=== PATIENT | female | born 1960 | race Caucasian/White ===

== ENCOUNTER → 2020-06-22 | Outpatient (CLI) | payer OTHER ==
--- NOTE | 2020-06-22 15:15 | CT ---
EXAMINATION TYPE: CT abdomen pelvis w con DATE OF EXAM: 06/22/2020 COMPARISON: NONE HISTORY: 60 year-old female with left lower quadrant abdominal pain and nausea. TECHNIQUE: Contiguous axial scanning of the abdomen and pelvis following administration of 100 ml Iso mariusz 300 IV contrast. Delayed images through the kidneys and coronal/sagittal reconstructions perform ed. CT DLP: 1282 mGycm Automated exposure control for dose reduction was used. FINDINGS: Heart borderline enlarged without pericardial effusion. Dependent atelectasis in the lower lungs. Mil d emphysematous change. Small hiatal hernia. Liver borderline in size at 17.5 cm. No focal lesion. Portal venous system is patent. No biliary duct al dilatation. Gallbladder, adrenal glands, spleen, and pancreas appear within normal limits. Diverticulum at the junction of the second and third portions of the duodenum projecting inferiorly m easuring 3.4 cm. Couple right renal cysts measured 2.2 cm and 7 mm. A number of small cortical hypodensities in the left kidney measuring up to 1.0 cm, likely small betsy ical cysts. No dilated small bowel, free fluid, or free air. No mesenteric or retroperitoneal lymphadenopathy. Moderate stool in the right side of the colon. There is lower descending and sigmoid diverticulosis. Wall thickening and mild pericolic inflammation involving the mid sigmoid colon. Bladder partially distended. Uterus shows a heterogeneously hypoenhancing 8.9 x 6.9 cm mass along the posterior fundus/body. This appears to have mass effect on to the uterine parenchyma. Small bilateral ovaries. No abnormal fluid collection in the pelvis or pelvic lymphadenopathy. Bones: Mild degenerative change of the hips. Facet arthropathy lower lumbar spine. IMPRESSION: 1. LEFT-SIDED COLONIC DIVERTICULOSIS, GREATEST IN THE SIGMOID COLON. THERE IS WALL THICKENING AND MIL D INFLAMMATION ALONG THE MID SIGMOID. FINDINGS SUGGEST MILD ACUTE DIVERTICULITIS. NO ABSCESS OR FREE AIR. DIRECT VISUALIZATION AFTER TREATMENT TO EXCLUDE UNDERLYING NEOPLASM. 2. LARGE, 8.9 CM HETEROGENEOUSLY HYPOENHANCING MASS WITHIN THE POSTERIOR UTERINE FUNDUS/BODY HAS MASS EFFECT ON THE REMAINING UTERINE PARENCHYMA. CONSIDER AN INFARCTING/DEGENERATING LARGE FIBROID. OUTPA TIENT FOLLOW-UP WITH DATABASE PROGRAMMER ANALYST RECOMMENDED.
== END | disposition home or self-care (01) ==
LOC: RADCTMAIN 13:23
PROVIDERS: ATTEND Family Medicine
DX: K57.30 Diverticulosis of large intestine without perforation or abscess without bleeding (principal); K52.9 Noninfective gastroenteritis and colitis, unspecified; K63.89 Other specified diseases of intestine; N85.8 Other specified noninflammatory disorders of uterus
CPT/HCPCS: 74177; Q9967

== ENCOUNTER → 2021-02-05 | Outpatient (CLI) | payer OTHER ==
--- NOTE | 2021-02-09 11:26 | MM ---
Reason for exam: screening (asymptomatic). Last mammogram was performed 15 years and 3 months ago. History: Patient is postmenopausal. Family history of breast cancer in sister at age 30. Took hormonal contraceptives for 5 years. Physical Findings: A clinical breast exam by your physician is recommended on an annual basis and results should be correlated with mammographic findings. MG Screening Mammo w CAD Bilateral CC and MLO view(s) were taken. Prior study comparison: May 26, 2019, mammogram. March 23, 2018, mammogram. There are scattered fibroglandular densities. Bilateral asymmetries. No change. ASSESSMENT: Benign, BI-RAD 2 RECOMMENDATION: Routine screening mammogram of both breasts in 1 year.
== END | disposition home or self-care (01) ==
LOC: RADMAMWWP 06:57
PROVIDERS: ATTEND Family Medicine
DX: Z12.31 Encounter for screening mammogram for malignant neoplasm of breast (principal); Z78.0 Asymptomatic menopausal state; Z80.3 Family history of malignant neoplasm of breast
CPT/HCPCS: 77067

== ENCOUNTER → 2021-04-18 | Outpatient (CLI) | payer OTHER ==
[2021-04-18 13:15] LABS: HCT 44.7 % (34.0-46.0); HGB 14.8 gm/dL (11.4-16.0); MCH 31.2 pg (25.0-35.0); MCV 94.5 fL (80.0-100.0); Mean Platelet Volume 8.4; Platelet Count 229 k/uL (150-450); RBC 4.73 m/uL (3.80-5.40); RDW 13.3 % (11.5-15.5)
[2021-04-18 13:29] LABS: Potassium 4.5 mmol/L (3.5-5.1)
== END | disposition home or self-care (01) ==
LOC: LABPAT 12:28
PROVIDERS: ATTEND Internal Medicine Clinical Cardiac Electrophysiology
DX: Z01.812 Encounter for preprocedural laboratory examination (principal); I47.1 Supraventricular tachycardia
CPT/HCPCS: 36415; 80051; 82565; 84520; 85027

== ENCOUNTER 2021-05-01 08:52 | Day surgery (SDC) | payer OTHER ==
[2021-04-25 09:32] VITALS: BMI 33.3
[2021-05-01] MEDS: SODIUM CHLORIDE 0.9% 1,000 ML IV SCH (09:10)
[2021-05-01] MEDS ORDERED: MIDAZOLAM 2 MG/2 ML VIAL IVP ONE (09:37)
[2021-05-01] MEDS ORDERED: MIDAZOLAM 2 MG/2 ML VIAL ONE (10:20)
[2021-05-01] MEDS ORDERED: diphenhydrAMINE 50 MG/ML 1 ML VIAL ONE (10:20)
[2021-05-01] MEDS ORDERED: ONDANSETRON 4 MG/2 ML VIAL ONE (10:20)
[2021-05-01] MEDS ORDERED: fentaNYL (PF) 50 MCG/ML 2 ML AMP ONE (10:20)
[2021-05-01] MEDS ORDERED: KETAMINE 10 MG/ML 20 ML VIAL ONE (10:20)
[2021-05-01] MEDS ORDERED: DEXAMETHASONE SOD PHOSPHATE 10 MG/ML 1 ML VIAL ONE (10:20)
[2021-05-01] MEDS ORDERED: LIDOCAINE 1% INJ 10MG/ML (20 ML MDV) ONE (10:22)
--- NOTE | 2021-05-01 10:46 | P.HPCAR ---
History of Present Illness This is Dr. Banks dictating an H/P on this patient The patient was interviewed and examined IMPRESSION / ASSESSMENT: Recurrent SVT number symptomatic Refractory to nadolol 20 mg by mouth daily Hypertension with mild LVH 2+ tricuspid regurgitation Elevated RVSP on 2-D echo PLAN: Diagnostic EP study and radiofrequency ablation as clinically indicated Evaluation of RVSP of 54 mmHg, right heart cath HPI Patient continues to complain of recurrent palpitations despite being on beta blockers. She has breakthrough episodes and nadolol 20 mg daily We have documented narrow complex SVT on event monitoring on nadolol 20 mg by mouth daily No loss of consciousness no chest discomfort ROS: No fever chills or rigors, no cough, phlegm or expectoration, no nausea, vomiting or diarrhea, no hematuria, dysuria, no musculoskeletal complaints, no strokes or seizures, no skin lesions. EXAMINATION: Temperature 97.1, pulse rate 79 Blood pressure 144/95 mmHg pulse ox 96% Breath sounds are clear no rhonchi no crackles Heart sounds S1 and S2 are normal no murmurs or gallop or rub Extremities warm no edema REVIEW OF LABS, ECG & MEDICAL DATA 2-D echo in July 2020 showed preserved LV systolic function 2+ tricuspid regurgitation mild left ventricular hypertrophy and a right ventricular systolic pressure of 54 mmHg Stress test did not show any evidence for ischemia. She exercised on a Arturo protocol for 6-1/2 minutes in July 2020 Physical Exam Vitals: Vital Signs Temp Pulse Resp BP Pulse Ox 05/01/21 09:20 97.1 F L 79 16 144/95 96 Intake and Output 04/30/21 05/01/21 05/01/21 22:59 06:59 14:59 Intake Total 50 Balance 50 Intake: IV 50 Other: Weight 88.6 kg Past Medical History Past Medical History: Atrial Fibrillation History of Any Multi-Drug Resistant Organisms: None Reported Past Surgical History: Orthopedic Surgery Additional Past Surgical History / Comment(s): ankle pins plate Past Anesthesia/Blood Transfusion Reactions: Postoperative Nausea & Vomiting (PONV) Additional Past Anesthesia/Blood Transfusion Reaction / Comment(s): dt anxiety Smoking Status: Current every day smoker - Past Family History Mother Family Medical History: No Reported History Physical Examination Vital Signs Temp Pulse Resp BP Pulse Ox 05/01/21 09:20 97.1 F L 79 16 144/95 96 Intake and Output 04/30/21 05/01/21 05/01/21 22:59 06:59 14:59 Intake Total 50 Balance 50 Intake: IV 50 Other: Weight 88.6 kg Results Current Medications Generic Name Dose Route Start Last Admin Trade Name Loco PRN Reason Stop Dose Admin Lactated Ringer's 1,000 mls @ 20 mls/hr 05/01/21 06:10 Lactated Ringers IV 05/31/21 06:11 .Q24H JESSICA Sodium Chloride 1,000 mls @ 20 mls/hr 05/01/21 06:10 05/01/21 09:10 Saline 0.9% IV 05/31/21 06:11 50 mls .Q24H JESSICA Administration Intake and Output 04/30/21 05/01/21 05/01/21 22:59 06:59 14:59 Intake Total 50 Balance 50 Intake: IV 50 Other: Weight 88.6 kg Patient Weight 05/02/21 06:59 Weight 88.6 kg
[2021-05-01] MEDS ORDERED: LIDOCAINE 1% INJ 10MG/ML (20 ML MDV) SQ ONE (11:10)
[2021-05-01] MEDS ORDERED: HEPARIN SODIUM (1,000 UNIT/ML) 1,000 UNIT in SODIUM CHLORIDE 0.9% 1,000 ML IRRIGATION ONE (12:32)
[2021-05-01] MEDS ORDERED: ACETAMINOPHEN TAB 325 MG TAB PO PRN (13:26)
[2021-05-01] MEDS ORDERED: ACETAMINOPHEN IV (For NPO) 1,000 MG in EMPTY BAG 1 BAG IVPB ONE (13:30)
--- NOTE | 2021-05-01 13:30 | P.PRLE ---
RE: Rody Puri Dear Marcy Woodeen underwent a diagnostic EP study which revealed typical AV node reentrant tachycardia She underwent successful slow pathway modification AV mendez reentry was rendered noninducible However she will continue with propranolol since she has migraines Thank you for entrusting me with the care of the patient Warm regards Sincerely Rc Banks
--- NOTE | 2021-05-01 15:13 | CE ---
CARDIAC ELECTROPHYSIOLOGY REPORT This is a 61-year-old female with recurrent palpitations despite beta alicia. She was brought in for a diagnostic EP study and possible radiofrequency ablation. Patient was brought to the EP lab in a fasting state. Written informed consent was obtained prior to the procedure. Venous sheaths were placed in the right groin, and via these catheters were placed in the high right atrium, His bundle area, RV and coronary sinus. Baseline measurements were as follows: Sinus cycle length 1019 milliseconds, OH interval 125 milliseconds, QRS 101 milliseconds, and QT 463 milliseconds. AH interval 75 milliseconds, HV interval 35 milliseconds. Sinus node recovery times at 600, 500 and 400 milliseconds were 1366, 1528 and 1411 milliseconds. Corresponding corrected sinus node recovery times were within normal limits. No delta waves with atrial pacing. No slow pathway evident with straight pacing from the coronary sinus. AV node Wenckebach block 330 milliseconds. VA Wenckebach block 330 milliseconds. Ventricular extrastimulation was performed. Ventricular conduction was midline and decremental. Para Hisian pacing was performed and a mendez response was noted. Ventricular ERP was 600/290 milliseconds. Thereafter, Isuprel was started at high dose and then down to 2 mcg. Ventricular ERP 400/210 milliseconds. With atrial extrastimulation, 400/200 milliseconds. SVT was induced. This was a narrow complex SVT with a short septal time. Tachycardia cycle length 273 milliseconds. With RV pacing, the tachycardia was entrained. Post-pacing interval was long, consistent with AV mendez reentry. Isuprel was stopped. A long sheath was placed and 3D electroanatomic mapping was performed. The His bundle was mapped. The coronary sinus was mapped. The tricuspid anulus and the septum were mapped. Slow pathway was mapped. RF ablation was applied just outside the coronary sinus and just anterior to it. Junctional rhythm was obtained. Good power of 30 herndon was used with an irrigated-tip catheter. Junctional rhythm was noted followed by resumption of sinus rhythm. Thereafter, a full EP study was performed again on and off Isuprel. High-dose Isuprel was used. Atrial extrastimulation from the high right atrium, from the coronary sinus was performed up to triple extrastimuli. No SVT was induced and there was no evidence of slow pathway conduction with atrial extrastimulation. Ventricular extrastimulation was performed. No SVT was induced. Isuprel was stopped. No further SVT was induced. All catheters were then removed. Vascade MVP was used to seal the venous punctures. The patient was transferred back to telemetry. RESULT: Diagnostic EP study revealing AV mendez re-entry as a mechanism of tachycardia and successful mapping and ablation of the slow pathway. PROCEDURE: Prior to starting the diagnostic EP study, right heart catheterization was performed. The 2D echo suggested RVSP of about 55 mmHg. A Mobile-Enriqueta catheter was placed from the venous sheath into the pulmonary artery. The PA pressures were 37/17/25 mmHg. Pulmonary capillary wedge pressure was 18/11/15 mmHg. RV pressures were 40/7/19 mmHg. RA pressures of 15/6/11 mmHg. IMPRESSION: 1. Mild pulmonary hypertension. 2. Mildly increased pulmonary capillary wedge pressure. MMODL / IJN: [id number] /
[2021-05-01] MEDS: LACTATED RINGERS 1,000 ML IV SCH (16:26)
[2021-05-01] MEDS: PROPRANOLOL 10 MG TAB PO SCH (21:58)
[2021-05-02] MEDS ORDERED: METOCLOPRAMIDE 5 MG TAB PO STA (08:10)
[2021-05-02] MEDS: PROPRANOLOL 10 MG TAB PO SCH (08:54)
[2021-05-02] MEDS: LACTATED RINGERS 1,000 ML IV SCH (08:55)
[2021-05-02] MEDS: SODIUM CHLORIDE 0.9% 1,000 ML IV SCH (08:56)
[2021-05-02] MEDS ORDERED: ASPIRIN 81 MG PO SCH (09:00)
[2021-05-02 15:54] VITALS: BP 117/77; PULSE 61; RESP 14; TEMP 98
[2021-05-02 15:56] LABS: Chol/HDL Ratio 4.55; LDL Cholesterol,Calculated 108.8 mg/dL (0.0-131.0); VLDL Calculation 26.2 mg/dL (5.00-40.00)
--- NOTE | 2021-05-02 16:57 | DS ---
DISCHARGE SUMMARY Rody Puri is a 61-year-old female with recurrent palpitations despite beta blockers and she underwent a diagnostic EP study yesterday, AV mendez reentry was found and she underwent successful in slow pathway ablation. Overnight, her main issue has been nausea secondary to conscious sedation medications. She was nauseous after she received her medications. We reversed fentanyl. She received ketamine during conscious sedation too. Overnight she has been nauseous, but her groins have healed up very well. There is minimal bruising in the right groin. No hematoma. Blood pressure is 104 mmHg systolic. Heart sounds are normal. No rub. Lungs are clear. Breath sounds are clear. No edema. Abdomen is soft. IMPRESSION: 1. AV mendez reentry, status post successful slow pathway ablation. 2. History of migraines, on Inderal. IV fluids. PLAN: Increase oral intake of fluids, ambulate in the hallways and discharged home by 5 o'clock if she stable. We will see her in the office in a week's time. MMODL / IJN: [id number] /
== END 2021-05-02 16:25 | disposition home or self-care (01) ==
LOC: CATHEP 08:52 → 6NMEDSUR 13:55 → CATHEP 05-02 16:25
PROVIDERS: ATTEND Internal Medicine Clinical Cardiac Electrophysiology
DX: I47.1 Supraventricular tachycardia (principal); I27.20 Pulmonary hypertension, unspecified; Z79.899 Other long term (current) drug therapy; I10 Essential (primary) hypertension; F17.210 Nicotine dependence, cigarettes, uncomplicated; Z88.6 Allergy status to analgesic agent; Z88.5 Allergy status to narcotic agent; K21.9 Gastro-esophageal reflux disease without esophagitis; F41.9 Anxiety disorder, unspecified
CPT/HCPCS: 93451; 93623; 93613; 93653; 80061 ×2; 84443 ×2; C1894 ×2; C1769 ×2; C1760; C1893; C1732; C1730; J2250; J2001; J1644

== ENCOUNTER → 2023-05-06 | Outpatient (CLI) | payer OTHER ==
--- NOTE | 2023-05-07 08:03 | US ---
EXAMINATION TYPE: US thyroid st tissue head/neck DATE OF EXAM: 05/06/2023 COMPARISON: NONE CLINICAL INDICATION: Female, 63 years old with history of E04.1 THYROID NODULE; Pt states she had an US done 1 year ago and there was a nodule GLAND SIZE: Right Lobe: 4.9 x 1.4 x 1.8 cm Overall Parenchyma: heterogenous Left Lobe: 5.3 x 2.4 x 2.1 cm Overall Parenchyma: heterogenous Isthmus Thickness: 0.3 cm NODULES RIGHT: # of nodules measured on right: 1 1. 0.7 X 0.6 x 0.5 cm, mid mid, solid or almost completely solid, isoechoic nodule, which is wider than tall, with ill-defined margins, without echogenic foci. LEFT: # of nodules measured on left: 1 1. 1.9 X 2.0 x 1.2 cm, lower mid, solid or almost completely solid, isoechoic nodule, which is wide r than tall, with ill-defined margins, without echogenic foci. TR 4 ISTHMUS: # of nodules measured in the isthmus: 0 Bilateral neck scanned, no evidence of lymphadenopathy. IMPRESSION: Moderately suspicious nodule posterior inferior left lobe thyroid. Fine-needle aspiration can be perf ormed. 2017 ACR TI-RADS LEVEL: TR-RADS 4 - Moderately Suspicious: Follow if > 1 cm, FNA if > 1.5 cm *Highest TI-RADS level nodule reported
== END | disposition home or self-care (01) ==
LOC: RADUSWWP 16:43
PROVIDERS: ATTEND Family Medicine
DX: E04.1 Nontoxic single thyroid nodule (principal)
CPT/HCPCS: 76536

== ENCOUNTER 2023-06-19 12:51 | Day surgery (SDC) | payer OTHER ==
[~2023-06-19 12:51] MED LIST: ALPRAZolam 0.5 MG TAB PO PRN
[2023-06-19 14:00] VITALS: RESP 16
--- NOTE | 2023-06-19 15:06 | US ---
EXAMINATION TYPE: US FNA first lesion DATE OF EXAM: 06/19/2023 3:01 PM CLINICAL INDICATION:Female, 63 years old with history of E04.1 NONTOXIC SINGLE THYROID NODULE; , thyr oid nodule. COMPARISON: 05/06/2023 ATTENDING: Dr. Rubio Magaña PROCEDURE: Informed consent was obtained. The risks and benefits of the procedure were discussed with the patien t. The site was marked. Timeout procedure was performed Ultrasound imaging of the thyroid demonstrates left posterior thyroid nodule The patient was prepped, draped in the usual sterile fashion, and locally anesthetized with 1% lidoca ine. Five fine needle aspiration were then performed with a 25 gauge needle. Samples were sent to [facility] pathology department for further analysis. Patient tolerated the procedure without incident and wa s sent home in stable condition. IMPRESSION: Successful ultrasound guided fine needle aspiration.
[2023-06-19 15:25] VITALS: BP 128/79; PULSE 78; TEMP 98
== END 2023-06-19 15:19 | disposition home or self-care (01) ==
LOC: RADPROMAIN 12:51
PROVIDERS: ATTEND Family Medicine
DX: E04.1 Nontoxic single thyroid nodule (principal)
CPT/HCPCS: 10005; 88173; 88305

== ENCOUNTER → 2023-07-15 | Outpatient (CLI) | payer OTHER ==
--- NOTE | 2023-07-16 15:35 | BD ---
EXAMINATION TYPE: Axial Bone Density DATE OF EXAM: 07/15/2023 CLINICAL HISTORY: 63 years old Female. ICD-10 CODE: M89.9 DISORDER OF BONE Height: 64 Weight: 209.4 FRAX RISK QUESTIONS: Alcohol (3 or more units per day): no Family History (Parent hip fracture): no Glucocorticoids (More than 3mos): no (Ex: prednisone, prednisolone, methylprednisolone, dexamethasone, and hydrocortisone). History of Fracture in Adulthood: yes Secondary Osteoporosis: 1. Type 1 Diabetes: no 2. Hyperthyroidism: no 3. Menopause before 45: no 4. Malnutrition: no 5. Chronic liver disease: no Rheumatoid Arthritis: no Current Tobacco Use: yes RISK FACTORS HISTORY OF: Surgery to Spine/Hip(right/left)/Wrist (right/left): no Additional History: EXAM MEASUREMENTS: Bone mineral densitometry was performed using the Dinnr System. Bone mineral density as measured about the Lumbar spine is: ----- L1-L4(G/cm2): 0.982 T Score Values are as follows: ----- L1: -1.8 ----- L2: -1.9 ----- L3: -1.7 ----- L4: -1.5 ----- L1-L4: -1.7 Z Score Values are as follows: ----- L1: -1.3 ----- L2: -1.4 ----- L3: -1.2 ----- L4: -1.0 ----- L1-L4: -1.2 Bone mineral density : baseline Bone mineral density about the R hip (g/cm2): 0.979 Bone mineral density about the L hip (g/cm2): 0.975 T Score values are as follows: -----R Neck: -1.3 -----L Neck: -1.3 -----R Total: -0.2 -----L Total: -0.3 Z Score values are as follows: -----R Neck: -0.6 -----L Neck: -0.5 -----R Total: 0.2 -----L Total: 0.1 Bone mineral density : baseline FRAX%s: The graph provided illustrates a 12.7% chance for a major osteoporotic fx and a 1.7% chance f or the hips probability for fx in 10 years time. IMPRESSION: Osteopenia (T Score between -2.5 and -1). There is slightly increased risk of fracture and the patient may be considered for treatment. Re-Screen 2-5 years. NOTE: T-SCORE=SD OF THE YOUNG ADULT MEAN.
--- NOTE | 2023-07-16 23:58 | MM ---
Reason for Exam: Screening (asymptomatic). Last mammogram was performed 2 year(s) and 5 month(s) ago. Patient History: Menarche at age 20. First Full-Term at age 24. Postmenopausal. Patient used Hormonal Contraceptives for 5 years. Sister had breast cancer, age 30. Risk Values: Kait 5 year model risk: 2.7%. NCI Lifetime model risk: 11.4%. Prior Study Comparison: 03/23/2018 Screening Mammogram, Unknown. 05/26/2019 Screening Mammogram, Unknown. 02/05/2021 Bilateral Screening Mammogram, [facility]. Tissue Density: There are scattered fibroglandular densities. Findings: Analyzed By CAD. Chronic bilateral nodularity and areas of asymmetric densities in both sites. However, a subareolar focal asymmetry in the left breast has become more defined and further evaluation is recommended. Overall Assessment: Incomplete: need additional imaging evaluation, BI-RAD 0 Management: Special View Mammogram of the left breast. Diagnostic Breast Ultrasound of the left breast. Additional views to include spot 3-D CC, 3-D MLO, and 3-D lateral views. Subsequent targeted left breast ultrasound. [facility] will attempt to contact patient to return for supplemental views and ultrasound if indicated. Electronically signed and approved by: Abiola Angel M.D. Radiologist
== END | disposition home or self-care (01) ==
LOC: RADMAMWWP 14:30
PROVIDERS: ATTEND Family Medicine
DX: Z12.31 Encounter for screening mammogram for malignant neoplasm of breast (principal); M85.89 Other specified disorders of bone density and structure, multiple sites; Z78.0 Asymptomatic menopausal state; Z80.3 Family history of malignant neoplasm of breast
CPT/HCPCS: 77063; 77067; 77080

== ENCOUNTER → 2023-07-25 | Outpatient (CLI) | payer SELFPAY ==
--- NOTE | 2023-07-25 11:09 | MM ---
Reason for Exam: Additional evaluation requested from abnormal screening. Last screening mammogram was performed less than 1 month ago. Patient History: Menarche at age 20. First Full-Term at age 24. Postmenopausal. Patient used Hormonal Contraceptives for 5 years. Sister had breast cancer, age 30. Risk Values: Kait 5 year model risk: 2.7%. NCI Lifetime model risk: 11.4%. Prior Study Comparison: 05/26/2019 Screening Mammogram, Unknown. 02/05/2021 Bilateral Screening Mammogram, [facility]. 07/15/2023 Bilateral MG 3D screening mammo w/cad, [facility]. Tissue Density: Left: There are scattered fibroglandular densities. Findings: Analyzed By CAD. Persistent mass 3.1 cm from nipple measuring 8 mm. Overall Assessment: Incomplete: need additional imaging evaluation, BI-RAD 0 Management: Diagnostic Breast Ultrasound of the left breast. Results were given to the patient verbally at the time of exam. Patient should continue monthly self-breast exams. A clinical breast exam by your physician is recommended on an annual basis. This exam should not preclude additional follow-up of suspicious palpable abnormalities. Note on Kait scores and lifetime risk: 1. A Kait score greater than 3% is considered moderate risk. If this is the case, consider specialist referral to assess eligibility for a risk reducing agent. 2. If overall lifetime risk for the development of breast cancer is 20% or higher, the patient may qualify for future screening with alternating mammogram and breast MRI. Electronically signed and approved by: Rubio Magaña DO
--- NOTE | 2023-07-25 11:11 | USB ---
Reason for Exam: Additional evaluation requested from abnormal screening. Patient History: Menarche at age 20. First Full-Term at age 24. Postmenopausal. Patient used Hormonal Contraceptives for 5 years. Sister had breast cancer, age 30. Risk Values: Kait 5 year model risk: 2.7%. NCI Lifetime model risk: 11.4%. Technique: Method: Targeted. Prior Study Comparison: 11/28/2005 Right Diagnostic Ultrasound, [facility]. 05/26/2019 Screening Mammogram, Unknown. 02/05/2021 Bilateral Screening Mammogram, [facility]. 07/15/2023 Bilateral MG 3D screening mammo w/cad, [facility]. Findings: Technique utilized:US breast workup limited LT Image; Ultrasound imaging of: All 4 quadrants, the retroareolar region and axilla. Heterogenous tissue posterior nipple. More masslike area with shadowing measuring 3 x 5 x a4 mm is present. Overall Assessment: Suspicious, BI-RAD 4 Management: Ultrasound Core Biopsy of the left breast. A clinical breast exam by your physician is recommended on an annual basis and results should be correlated with mammographic findings. This exam should not preclude additional follow-up of suspicious palpable abnormalities. Results were given to the patient verbally at the time of exam. Electronically signed and approved by: Rubio Magaña DO
== END | disposition home or self-care (01) ==
LOC: RADMAMWWP 10:12
PROVIDERS: ATTEND Family Medicine
DX: R92.322 Mammographic fibroglandular density, left breast (principal); Z78.0 Asymptomatic menopausal state; Z80.3 Family history of malignant neoplasm of breast
CPT/HCPCS: 77061; 77065

== ENCOUNTER → 2023-10-17 | Outpatient (CLI) | payer OTHER ==
[2023-10-17 10:28] VITALS: BP 138/87; PULSE 75; RESP 15; TEMP 98.1
--- NOTE | 2023-10-17 10:29 | P.GSHP ---
History of Present Illness H&P Date: 10/17/23 Chief Complaint: left breast nodule Rody is a 63 year old female seen in consultation for DR. Coates regarding a left breat nodule. She had a bilateral mammogram on 07-15-23 which led to a left breast diagnostic mammogram and ultrasound. The mammogram on 07-25-23 showed a persistent mass 8mm in size 3.1 cm from the nipple. The ultrasound on the same date 07-25-23 showed a 3 by 5 by 4 mm area in [place] region fo the abnormality and biopsy recommended. She did not yet have the biopsy done. She is not complaining of any new lumps masses or nodules of concern in either breast. Since she was told she needed an ultrasound-guided core biopsy she has had some discomfort in the lateral aspect of the left breast. She has not had any surgery on her breast. She has not had any recent trauma or infection in the breast. She gets her mammograms yearly. Caffeine: none nicotine: 1 PPD for 50 years chocolate: off it for 5 weeks used to eat daily BCP: used them for 1 year in the remote past hormones: none Kait Risk: 2.7% at 5 years Family History: sister: lymphoma Hormonal History: Menarche: 20 , breast fed: no, age at : 24 menopause: 45 Surgical History: plate in left ankle parathyroid surgery heart ablation Medical History: none atrial fib in the past not since ablation Social History: nicotine: as above alcohol: none drugs: none - Constitutional Constitutional: Denies chills, Denies fever - EENT Eyes: denies blurred vision, denies pain Ears: deny: decreased hearing, tinnitus Ears, nose, mouth and throat: Denies headache, Denies sore throat - Breasts Breasts: bilateral: as per HPI - Cardiovascular Cardiovascular: Denies chest pain, Denies shortness of breath - Respiratory Respiratory: Reports as per HPI - Gastrointestinal Gastrointestinal: Denies abdominal pain, Denies diarrhea, Denies nausea, Denies vomiting - Genitourinary (Female) Genitourinary: Reports as per HPI, Reports kidney stones, Denies dysuria, Denies hematuria - Menstruation Menstruation: Reports postmenopausal - Musculoskeletal Musculoskeletal: Denies myalgias - Integumentary Integumentary: Denies pruritus, Denies rash - Neurological Neurological: Denies numbness, Denies weakness - Psychiatric Psychiatric: Denies anxiety, Denies depression - Endocrine Endocrine: Reports as per HPI - Hematologic/Lymphatic Comment: none - Allergic/Immunologic Allergic/Immunologic: Reports as per HPI Past Medical History Past Medical History: Atrial Fibrillation, Thyroid Disorder History of Any Multi-Drug Resistant Organisms: None Reported Past Surgical History: Orthopedic Surgery Additional Past Surgical History / Comment(s): ankle pins and plate, parathyoidectomy at [facility], ablation for A-fib Past Anesthesia/Blood Transfusion Reactions: Postoperative Nausea & Vomiting (PONV) Additional Past Anesthesia/Blood Transfusion Reaction / Comment(s): dt anxiety Past Psychological History: Anxiety Smoking Status: Current every day smoker Past Alcohol Use History: None Reported Past Drug Use History: None Reported - Past Family History Mother Family Medical History: No Reported History Medications and Allergies Home Medications Medication Instructions Recorded Confirmed Type Vitamin B Complex 1 tab PO DAILY 07/28/23 10/17/23 History Cholecalciferol (Vitamin D3) 50 mcg PO DAILY 10/17/23 10/17/23 History [Vitamin D3 (50 Mcg = 2000 Iu)] Allergies Allergy/AdvReac Type Severity Reaction Status Date / Time hydrocodone [From [place]] AdvReac Nausea & Verified 10/17/23 09:56 Vomiting Surgical - Exam Vital Signs Temp Pulse Resp BP Pulse Ox 98.1 F 75 15 138/87 99 10/17/23 09:58 10/17/23 09:58 10/17/23 09:58 10/17/23 09:58 10/17/23 09:58 - General no distress - Eyes normal ocular movement - Neck trachea midline - Respiratory normal respiratory effort - Cardiovascular Heart Sounds: normal: S1, S2 - Abdomen Abdomen: soft, non tender, no guarding, no rigid, no rebound - Integumentary normal turgor - Neurologic no disoriented, no combative - Psychiatric oriented to time, oriented to person, oriented to place, speech is normal, memory intact Breast Exam: BRA: 38C Inspection: Right breast slightly larger than left breast, bilateral grade 2/3 ptosis Palpation: Right breast Multi positional exam no dominant masses or nodules of concern, fibrocystic changes Right axilla: No adenopathy of concern Left breast: Multi positional exam fibrocystic changes no dominant masses or nodules of concern Left axilla no adenopathy of concern Results Mammogram and ultrasound personally reviewed 4 by 5 mm lesion posterior to nipple areolar complex on the left for which core biopsy is recommended Assessment and Plan Assessment: Impression: Radiographic abnormality left breast Kait risk 2.7% 5-year Prior history of hyperparathyroidism resolved Nicotine dependence Plan: 1. Ultrasound-guided left breast core biopsy 2. Smoking cessation and at this time the patient is going to consider that 3. We have discussed the Kait risk and chemoprophylaxis and at this time she has declined 4. Patient to follow-up after ultrasound-guided core biopsy She is seen with her . He does have questions regarding what the pathology may be if this were a benign lesion, we have answered those questions. Risks of the procedure include but are not limited to bleeding, infection, reaction to the anesthetic. If the lesion cannot be clearly seen it may not be possible to do an ultrasound-guided core biopsy or if the lesion were discordant then further tissue acquisition may be necessary. They understand and wish to proceed. This will be scheduled in the near future. CC: DR. Coates
== END ==
LOC: WWCWWP 09:43
PROVIDERS: ATTEND Surgery
DX: E03.9 Hypothyroidism, unspecified (principal); I48.91 Unspecified atrial fibrillation; N63.20 Unspecified lump in the left breast, unspecified quadrant; F41.9 Anxiety disorder, unspecified; F17.210 Nicotine dependence, cigarettes, uncomplicated; Z98.890 Other specified postprocedural states; Z88.5 Allergy status to narcotic agent

== ENCOUNTER → 2023-10-30 | Day surgery (SDC) | payer OTHER ==
--- NOTE | 2023-11-03 15:18 | MM ---
Reason for Exam: Post Procedure Mammogram. Last screening mammogram was performed 4 month(s) ago. Patient History: Menarche at age 20. First Full-Term at age 24. Postmenopausal. Patient used Hormonal Contraceptives for 5 years. Sister had breast cancer, age 30. Risk Values: Kait 5 year model risk: 2.7%. NCI Lifetime model risk: 11.4%. Prior Study Comparison: 02/05/2021 Bilateral Screening Mammogram, [facility]. 07/15/2023 Bilateral MG 3D screening mammo w/cad, [facility]. 07/25/2023 Left MG 3D work up w/cad LT, [facility]. Tissue Density: Left: There are scattered areas of fibroglandular density. Pathology Description: Marker Left Behind. Needle Type: Celero Cores: 3 The procedure of ultrasound guided core biopsy was explained to the patient. Benefits, alternatives, and risks were discussed. An informed consent was then obtained. The patient was placed in supine positioning for imaging and for the procedure. The overlying skin was prepped and draped in usual sterile fashion. Lidocaine buffered with bicarbonate was used as anesthetic into the skin and subcutaneous tissue up to area of concern in the left retroareolar breast. Under ultrasound guidance, a 12-gauge vacuum assisted biopsy gun device was used to obtain 3 core samples. Following this, a biopsy clip was left in lesion. The patient tolerated the procedure well without any immediate complication. The patient was kept in the radiology department for short stay after the procedure and then discharged home in stable condition. Postprocedure mammogram: The patient was transferred to mammography for physician ordered post procedure mammogram for clip placement verification. Impression: Successful, uncomplicated ultrasound guided core biopsy of area of concern in the left retroareolar breast, full pathology results to follow. Pathology Results: Result: Benign, Fibrocystic change. LEFT BREAST NIPPLE, NEEDLE CORE BIOPSY: Benign breast with fibrocystic changes including fibrotic cyst wall with chronic inflammation. Overall Assessment: Benign Assessment: MG diagnostic mammo LT wo CAD. - Left: Probably benign, BI-RAD 3. Management: Diagnostic Mammogram of the left breast in 6 months. Diagnostic Breast Ultrasound of the left breast in 6 months. Benign results may be concordant as the area appears to have been adequately sampled. Given imaging features, short interval follow up recommended. Electronically signed and approved by: David Bajwa M.D. Radiologis
== END ==
LOC: RADUSWWP 12:35
PROVIDERS: ATTEND Surgery
DX: N60.12 Diffuse cystic mastopathy of left breast (principal)
CPT/HCPCS: 88305; 77065; 19083; A4648

== ENCOUNTER → 2023-11-07 | Outpatient (CLI) | payer OTHER ==
--- NOTE | 2023-11-07 11:36 | P.PN ---
Subjective Progress Note Date: 11/07/23 Principal diagnosis: fibrocystic breast changes left breast nodule Rody is a 63 year old female seen in consultation for DR. Coates regarding a left breast nodule. She had a bilateral mammogram on 07-15-23 which led to a left breast diagnostic mammogram and ultrasound. The mammogram on 07-25-23 showed a persistent mass 8mm in size 3.1 cm from the nipple. The ultrasound on the same date 07-25-23 showed a 3 by 5 by 4 mm area in the region of the abnormality and biopsy was recommended. She was not complaining of any new lumps masses or nodules of concern in either breast. Since she was told she needed an ultrasound-guided core biopsy she has had some discomfort in the lateral aspect of the left breast. She had not had any surgery on her breast. She had not had any recent trauma or infection in the breast. She gets her mammograms yearly. ultrasound core biopys of the left bresat on 10-30-23 benign breast tissue/concordant repeat left breast mammogram and ultrasound in 6 months Biopsy without difficulty Caffeine: none nicotine: 1 PPD for 50 years chocolate: off it for 5 weeks used to eat daily BCP: used them for 1 year in the remote past hormones: none Kait Risk: 2.7% at 5 years Family History: sister: lymphoma Hormonal History: Menarche: 20 , breast fed: no, age at : 24 menopause: 45 Surgical History: plate in left ankle parathyroid surgery heart ablation Medical History: none atrial fib in the past not since ablation Social History: nicotine: as above alcohol: none drugs: none - Constitutional Constitutional: Denies chills, Denies fever - EENT Eyes: denies blurred vision, denies pain Ears: deny: decreased hearing, tinnitus Ears, nose, mouth and throat: Denies headache, Denies sore throat - Breasts Breasts: bilateral: as per HPI - Cardiovascular Cardiovascular: Denies chest pain, Denies shortness of breath - Respiratory Respiratory: Reports as per HPI - Gastrointestinal Gastrointestinal: Denies abdominal pain, Denies diarrhea, Denies nausea, Denies vomiting - Genitourinary (Female) Genitourinary: Reports as per HPI, Reports kidney stones, Denies dysuria, Denies hematuria - Menstruation Menstruation: Reports postmenopausal - Musculoskeletal Musculoskeletal: Denies myalgias - Integumentary Integumentary: Denies pruritus, Denies rash - Neurological Neurological: Denies numbness, Denies weakness - Psychiatric Psychiatric: Denies anxiety, Denies depression - Endocrine Endocrine: Reports as per HPI - Hematologic/Lymphatic Comment: none - Allergic/Immunologic Allergic/Immunologic: Reports as per HPI Past Medical History Past Medical History: Atrial Fibrillation, Thyroid Disorder History of Any Multi-Drug Resistant Organisms: None Reported Past Surgical History: Orthopedic Surgery Additional Past Surgical History / Comment(s): ankle pins and plate, parathyoidectomy at [facility], ablation for A-fib Past Anesthesia/Blood Transfusion Reactions: Postoperative Nausea & Vomiting (PONV) Additional Past Anesthesia/Blood Transfusion Reaction / Comment(s): dt anxiety Past Psychological History: Anxiety Smoking Status: Current every day smoker Past Alcohol Use History: None Reported Past Drug Use History: None Reported - Past Family History Mother Family Medical History: No Reported History Medications and Allergies Home Medications Medication Instructions Recorded Confirmed Type Vitamin B Complex 1 tab PO DAILY 07/28/23 10/17/23 History Cholecalciferol (Vitamin D3) 50 mcg PO DAILY 10/17/23 10/17/23 History [Vitamin D3 (50 Mcg = 2000 Iu)] Allergies Allergy/AdvReac Type Severity Reaction Status Date / Time hydrocodone [From [place]] AdvReac Nausea & Verified 10/17/23 09:56 Vomiting Objective - Vital Signs Vital signs: Intake & Output 11/06/23 11/07/23 11/07/23 18:59 06:59 18:59 Weight 90.718 kg - Constitutional General appearance: Present: cooperative - EENT Eyes: Present: EOMI ENT: Present: hearing grossly normal - Respiratory Respiratory: bilateral: CTA - Cardiovascular Heart sounds: normal: S1, S2 - Integumentary Integumentary: Present: normal turgor - Musculoskeletal Musculoskeletal: Present: gait normal - Psychiatric Psychiatric: Present: A&O x's 3, appropriate affect, intact judgment & insight - Additional findings Additional findings: Breast evaluation left breast: Ecchymosis at biopsy site; lower outer breast No evidence of infection or hematoma Assessment and Plan Assessment: Impression: Fibrocystic breast changes Plan: Repeat left breast mammogram and ultrasound in 6 months with physician exam at that time Patient to follow-up sooner any questions or concerns CC: DR. Coates
[2023-11-07 11:54] VITALS: BP 144/84; PULSE 66; RESP 16; TEMP 98.2
== END ==
LOC: WWCWWP 10:42
PROVIDERS: ATTEND Surgery
DX: N63.20 Unspecified lump in the left breast, unspecified quadrant (principal); N60.12 Diffuse cystic mastopathy of left breast